=== PATIENT | female | born 1940 | race Asian ===

== ENCOUNTER 2022-07-25 09:19 | Emergency (ER) | payer OTHER ==
[~2022-07-25] VITALS: Ht 154.9 cm; Wt 49.9 kg
[2022-07-25 09:39] VITALS: BP 189/70
--- NOTE | 2022-07-25 09:39 | NUR ---
pt ambulated to bed 01
--- NOTE | 2022-07-25 10:28 | NUR ---
PT LAYING IN BED CALM, RELAXED. PT DENIES ANY PAIN OR DISTRESS. PT BEING TAKEN TO XRAY. WILL CONTINUE TO MONITOR
[2022-07-25] MEDS ORDERED: KETOROLAC 30 MG/ML VIAL IM ONE (11:40)
[2022-07-25] MEDS ORDERED: ACET-8386 PO (12:19)
[2022-07-25] MEDS ORDERED: NAPR-1704 PO (12:19)
[2022-07-25 12:58] VITALS: BP 130/79
--- NOTE | 2022-07-25 13:01 | NUR ---
Patient discharged with v/s stable. Written and verbal after care instructions given and explained. Patient verbalized understanding. Ambulatory with steady gait. All questions addressed prior to discharge. Advised to follow up with PMD.
== END 2022-07-25 12:58 | disposition home or self-care (01) ==
LOC: MED 09:19
DX: S22.32XA Fracture of one rib, left side, initial encounter for closed fracture (principal); S80.01XA Contusion of right knee, initial encounter; S60.222A Contusion of left hand, initial encounter; S09.90XA Unspecified injury of head, initial encounter; W18.30XA Fall on same level, unspecified, initial encounter; Y93.89 Activity, other specified; Y92.89 Other specified places as the place of occurrence of the external cause; Y99.8 Other external cause status
CPT/HCPCS: 70450; 71101; 73130; 73562; 93005; 99284